=== PATIENT | female | born 1995 | race Caucasian/White ===

== ENCOUNTER → 2023-09-08 08:19 | Outpatient (REF) | payer OTHER, SELFPAY | LOC: WDC 08:19 | PROVIDERS: ATTENDING PHYSICIAN Nurse Practitioner Family; FAMILY PHYSICIAN Registered Nurse | DX: N64.4 Mastodynia (principal) | CPT/HCPCS: 76642 ==

== ENCOUNTER → 2023-10-04 14:01 | Outpatient (REF) | payer OTHER, SELFPAY | LOC: HWRAD 14:01 | PROVIDERS: ATTENDING PHYSICIAN Nurse Practitioner Family; FAMILY PHYSICIAN Registered Nurse | DX: N92.6 Irregular menstruation, unspecified (principal) | CPT/HCPCS: 76830; 76856 ==

== ENCOUNTER → 2024-02-17 11:59 | Outpatient (REF) | payer OTHER, SELFPAY | LOC: PNTC 11:59 | PROVIDERS: ATTENDING PHYSICIAN Obstetrics & Gynecology | DX: O36.8990 Maternal care for other specified fetal problems, unspecified trimester, not applicable or unspecified (principal); V89.2XXA Person injured in unspecified motor-vehicle accident, traffic, initial encounter | CPT/HCPCS: 76801 ==

== ENCOUNTER → 2024-03-22 08:26 | Outpatient (REF) | payer OTHER, SELFPAY | LOC: WDC 08:26 | PROVIDERS: ATTENDING PHYSICIAN Nurse Practitioner Family | DX: R92.8 Other abnormal and inconclusive findings on diagnostic imaging of breast (principal); N63.23 Unspecified lump in the left breast, lower outer quadrant | CPT/HCPCS: 76642 ==

== ENCOUNTER 2024-07-19 21:13 | Observation (INO) | payer OTHER, SELFPAY ==
[2024-07-19 21:39] VITALS: BP 104/65; BMI 25.5
[2024-07-19] MEDS: LR 1000 IV (22:45)
[2024-07-19 22:52] LABS: Urine Albumin Negative (Neg - Trace); Urine Bilirubin Negative (Negative); Urine Character Clear (Clear); Urine Color Yellow; Urine Glucose Negative (Negative); Urine Ketone Negative (Negative); Urine Leukocyte Negative (Negative); Urine Nitrite Negative (Negative); Urine Occult Blood Negative (Negative); Urine Urobilinogen Negative (Neg - 1+); Urine pH 6.5 (5.0-9.0)
[2024-07-19 22:53] LABS: % Basophils 0.3 % (0-2); % Immature Granulocytes 1.1 % (0-0.5); % Lymphocytes 21.9 % (20.5-51.1); % Monocytes 8.8 % (1.7-9.3); % Neutrophils 66.9 % (42.2-75.2); Absolute Eosinophils 0.1 10^3/uL (0-0.7); Absolute Immature Granulocytes 0.1 10^3/uL (0-0.05); Absolute Lymphocytes 2.2 10^3/uL (1.2-3.4); Absolute Monocytes 0.9 10^3/uL (0.1-0.6); Absolute Neutrophils 6.7 10^3/uL (1.4-6.5); Hematocrit 30.9 % (37.0-47.0); Hemoglobin 10.6 g/dL (12.0-16.0); Mean Corp Hgb Conc. 34.3 g/dL (33.0-37.0); Mean Corpuscular Hgb 28.7 pg (27.0-31.0); Mean Corpuscular Volume 83.7 fL (81.0-99.0); Mean Platelet Volume 9.3 fL (7.4-10.4); Nucleated Red Blood Cells % 0 %; Platelet Count 250 10^3/uL (130-400); Red Blood Cell Count 3.69 10^6/uL (4.20-5.40); Red Cell Dist. Width 12.7 % (11.5-14.5)
== END 2024-07-20 08:10 | disposition home or self-care (01) ==
LOC: LDRP 21:13
PROVIDERS: ADMITTING PHYSICIAN Obstetrics & Gynecology; FAMILY PHYSICIAN Registered Nurse
DX: O26.893 Other specified pregnancy related conditions, third trimester (principal); W10.9XXA Fall (on) (from) unspecified stairs and steps, initial encounter; Y93.01 Activity, walking, marching and hiking; Y92.9 Unspecified place or not applicable; Z3A.32 32 weeks gestation of pregnancy; Z28.310 Unvaccinated for COVID-19
CPT/HCPCS: 76815; 81003; 85025; 85460; 86850; 86900; 86901; G0378

== ENCOUNTER 2024-08-21 03:12 | Observation (INO) | payer OTHER, SELFPAY ==
[2024-08-21 03:39] VITALS: BMI 26.8
[2024-08-21 03:40] VITALS: BP 108/70
[2024-08-21] MEDS: LR 1000 IV ×2 (04:10→08:15)
[2024-08-21 04:32] LABS: Urine Albumin Negative (Neg - Trace); Urine Bilirubin Negative (Negative); Urine Character Clear (Clear); Urine Color Yellow; Urine Glucose Negative (Negative); Urine Ketone Negative (Negative); Urine Leukocyte 1+ (Negative); Urine Nitrite Negative (Negative); Urine Occult Blood Negative (Negative); Urine Specific Gravity 1.015 (<1.030); Urine Urobilinogen Negative (Neg - 1+)
[2024-08-21 04:34] LABS: % Basophils 0.4 % (0-2); % Eosinophils 0.8 % (0-6); % Immature Granulocytes 0.9 % (0-0.5); % Lymphocytes 15.8 % (20.5-51.1); % Monocytes 8.6 % (1.7-9.3); % Neutrophils 73.5 % (42.2-75.2); Absolute Basophils 0.1 10^3/uL (0-0.2); Absolute Eosinophils 0.1 10^3/uL (0-0.7); Absolute Immature Granulocytes 0.1 10^3/uL (0-0.05); Absolute Lymphocytes 2.2 10^3/uL (1.2-3.4); Absolute Monocytes 1.2 10^3/uL (0.1-0.6); Absolute Neutrophils 10.2 10^3/uL (1.4-6.5); Hematocrit 31.5 % (37.0-47.0); Hemoglobin 10.3 g/dL (12.0-16.0); Mean Corp Hgb Conc. 32.7 g/dL (33.0-37.0); Mean Corpuscular Hgb 26.4 pg (27.0-31.0); Mean Corpuscular Volume 80.8 fL (81.0-99.0); Mean Platelet Volume 10.1 fL (7.4-10.4); Nucleated Red Blood Cells % 0 %; Platelet Count 254 10^3/uL (130-400); White Blood Cell Count 13.9 10^3/uL (4.8-10.8)
[2024-08-21 04:55] LABS: ALT (SGPT) 14 U/L (0-35); AST (SGOT) 20 U/L (14-36); Albumin 3.6 g/dl (3.5-5.0); Alkaline Phosphatase 153 U/L (38-126); Blood Urea Nitrogen 4 mg/dl (7-17); Calcium 8.8 mg/dl (8.4-10.2); Carbon Dioxide 21 mmol/L (22-30); Chloride 106 mmol/L (98-107); Estimated Creatinine Clearance > 125 ml/min; Glucose 110 mg/dl (70-99); Sodium 138 mmol/L (135-145); Total Protein 6.1 g/dl (6.3-8.2); eGFR > 60.00
[2024-08-21 04:57] LABS: Protein/creatinine Ratio 0.2; Urine Protein 12 mg/dl
[2024-08-21 05:25] LABS: Urine Bacteria Many (Negative); Urine Squamous Cell >30 /LPF (Few)
[2024-08-21] MEDS: AMOXIL 500 MG PO (07:07)
[2024-08-21] MEDS: ZOFRAN ODT (ORALLY DISINTEGRATING) 4 MG PO (07:56)
[2024-08-21] MEDS: MORPHINE SULFATE 2 MG IV (08:45)
[2024-08-21] MEDS: TYLENOL 1000 MG PO (12:05)
[2024-08-21] MEDS: ANCEF 10 IV (12:06)
== END 2024-08-21 15:39 | disposition home or self-care (01) ==
LOC: LDRP 03:12
PROVIDERS: Obstetrics & Gynecology; ADMITTING PHYSICIAN Obstetrics & Gynecology
DX: O23.43 Unspecified infection of urinary tract in pregnancy, third trimester (principal); N13.6 Pyonephrosis; R10.9 Unspecified abdominal pain; O26.893 Other specified pregnancy related conditions, third trimester; L29.9 Pruritus, unspecified; Z3A.36 36 weeks gestation of pregnancy; Z88.8 Allergy status to other drugs, medicaments and biological substances; Z91.048 Other nonmedicinal substance allergy status; Z28.310 Unvaccinated for COVID-19
CPT/HCPCS: 76770; 80053; 81003; 81015; 82570; 84156; 85025; 86850; 86900; 86901; 87086; G0378

== ENCOUNTER 2024-09-06 19:26 | Inpatient (IN) | payer OTHER, SELFPAY ==
[2024-09-06 19:30] VITALS: BMI 26.8
[2024-09-06 20:08] LABS: % Basophils 0.4 % (0-2); % Eosinophils 1.1 % (0-6); % Immature Granulocytes 1.3 % (0-0.5); % Lymphocytes 21.8 % (20.5-51.1); % Monocytes 9.5 % (1.7-9.3); % Neutrophils 65.9 % (42.2-75.2); Absolute Basophils 0.1 10^3/uL (0-0.2); Absolute Eosinophils 0.1 10^3/uL (0-0.7); Absolute Immature Granulocytes 0.2 10^3/uL (0-0.05); Absolute Lymphocytes 2.6 10^3/uL (1.2-3.4); Absolute Monocytes 1.1 10^3/uL (0.1-0.6); Absolute Neutrophils 7.9 10^3/uL (1.4-6.5); Hemoglobin 10.1 g/dL (12.0-16.0); Mean Corp Hgb Conc. 32.6 g/dL (33.0-37.0); Mean Corpuscular Hgb 25.5 pg (27.0-31.0); Mean Corpuscular Volume 78.3 fL (81.0-99.0); Mean Platelet Volume 9.6 fL (7.4-10.4); Nucleated Red Blood Cells % 0 %; Platelet Count 333 10^3/uL (130-400); Red Blood Cell Count 3.96 10^6/uL (4.20-5.40); Red Cell Dist. Width 14.8 % (11.5-14.5)
[2024-09-06] MEDS: LR 1000 IV (20:43)
[2024-09-06] MEDS: FLUSH (NSS) 1 FLUSH IV (20:43)
[2024-09-06] MEDS: CYTOTEC 25 MICROGRAM VAG (21:02)
[2024-09-07 06:21] VITALS: BP 105/67
[2024-09-07] MEDS: PITOCIN 30 UNITS/NSS 500 ML IV (09:01)
[2024-09-07] MEDS: LR 1000 IV (13:14)
[2024-09-07] MEDS: FENTANYL/BUPIVACAINE 100 EPIDURAL (19:44)
[2024-09-07] MEDS: SUBLIMAZE 100 MCG EPIDURAL (19:44)
[2024-09-08] MEDS: FENTANYL/BUPIVACAINE 100 EPIDURAL (04:30)
[2024-09-08] MEDS: TYLENOL 650 MG PO ×3 (10:48→23:58)
[2024-09-08] MEDS: PRENATAL PLUS 1 TABLET PO (10:48)
[2024-09-08] MEDS: MOTRIN 600 MG PO ×2 (15:54→21:56)
[2024-09-09] MEDS: TYLENOL 650 MG PO ×4 (03:58→23:56)
[2024-09-09] MEDS: MOTRIN 600 MG PO ×3 (03:58→19:34)
[2024-09-09 04:23] LABS: Hematocrit 26.9 % (37.0-47.0); Hemoglobin 8.6 g/dL (12.0-16.0)
[2024-09-09] MEDS: PRENATAL PLUS 1 TABLET PO (08:35)
[2024-09-09] MEDS: FEOSOL 325 MG PO (08:35)
[2024-09-09] MEDS: SENOKOT-S 1 TABLET PO (08:35)
[2024-09-10] MEDS: MOTRIN 600 MG PO (06:00)
[2024-09-10] MEDS: SENOKOT-S 1 TABLET PO (08:44)
[2024-09-10] MEDS: PRENATAL PLUS 1 TABLET PO (08:44)
[2024-09-10] MEDS: FEOSOL 325 MG PO (08:44)
[2024-09-12 14:14] LABS: Syphilis/T. pallidum Ab Reflex Negative (Negative)
== END 2024-09-10 13:58 | disposition home or self-care (01) | DRG 807 ==
LOC: LDRP 19:26
PROVIDERS: Student in an Organized Health Care Education/Training Program; ADMITTING PHYSICIAN Obstetrics & Gynecology; FAMILY PHYSICIAN Obstetrics & Gynecology
PROC: 3E0P7VZ Introduction of Hormone into Female Reproductive, Via Natural or Artificial Opening (ICD-10-PCS; 2024-09-06)
PROC: 3E033VJ Introduction of Other Hormone into Peripheral Vein, Percutaneous Approach (ICD-10-PCS; 2024-09-07)
PROC: 10E0XZZ Delivery of Products of Conception, External Approach (ICD-10-PCS; 2024-09-08)
PROC: 0KQM0ZZ Repair Perineum Muscle, Open Approach (ICD-10-PCS; 2024-09-08)
PROC: 10907ZC Drainage of Amniotic Fluid, Therapeutic from Products of Conception, Via Natural or Artificial Opening (ICD-10-PCS; 2024-09-08)
PROC: 3E0234Z Introduction of Serum, Toxoid and Vaccine into Muscle, Percutaneous Approach (ICD-10-PCS; 2024-09-10)
DX: O32.6XX0 Maternal care for compound presentation, not applicable or unspecified (principal); Z37.0 Single live birth; O76 Abnormality in fetal heart rate and rhythm complicating labor and delivery; O69.81X0 Labor and delivery complicated by cord around neck, without compression, not applicable or unspecified; O70.1 Second degree perineal laceration during delivery; Z3A.39 39 weeks gestation of pregnancy; Z23 Encounter for immunization
CPT/HCPCS: 85014; 85018; 85025; 86780; 86850; 86900; 86901

== ENCOUNTER 2024-09-14 02:36 | Observation (INO) | payer OTHER, SELFPAY ==
[2024-09-14 02:43] VITALS: BP 141/84; BMI 24.8
[2024-09-14 03:04] LABS: Urine Albumin 1+ (Neg - Trace); Urine Bilirubin Negative (Negative); Urine Character Clear (Clear); Urine Glucose Negative (Negative); Urine Ketone Negative (Negative); Urine Leukocyte 3+ (Negative); Urine Nitrite Negative (Negative); Urine Occult Blood 4+ (Negative); Urine Specific Gravity 1.005 (<1.030); Urine Urobilinogen Negative (Neg - 1+)
[2024-09-14 03:05] LABS: % Basophils 0.8 % (0-2); % Eosinophils 2.9 % (0-6); % Lymphocytes 27.1 % (20.5-51.1); % Monocytes 9.1 % (1.7-9.3); % Neutrophils 59.1 % (42.2-75.2); Absolute Basophils 0.1 10^3/uL (0-0.2); Absolute Eosinophils 0.3 10^3/uL (0-0.7); Absolute Immature Granulocytes 0.1 10^3/uL (0-0.05); Absolute Lymphocytes 2.9 10^3/uL (1.2-3.4); Absolute Neutrophils 6.2 10^3/uL (1.4-6.5); Hematocrit 34.5 % (37.0-47.0); Hemoglobin 11.2 g/dL (12.0-16.0); Mean Corp Hgb Conc. 32.5 g/dL (33.0-37.0); Mean Corpuscular Hgb 25.4 pg (27.0-31.0); Mean Corpuscular Volume 78.2 fL (81.0-99.0); Mean Platelet Volume 9.3 fL (7.4-10.4); Nucleated Red Blood Cells % 0 %; Platelet Count 295 10^3/uL (130-400); Red Blood Cell Count 4.41 10^6/uL (4.20-5.40); Red Cell Dist. Width 15.8 % (11.5-14.5); Urine Color Straw; White Blood Cell Count 10.5 10^3/uL (4.8-10.8)
[2024-09-14 03:17] LABS: Protein/creatinine Ratio 2.9; Urine Protein 24 mg/dl
[2024-09-14 03:18] LABS: ALT (SGPT) 21 U/L (0-35); AST (SGOT) 21 U/L (14-36); Albumin 3.8 g/dl (3.5-5.0); Alkaline Phosphatase 141 U/L (38-126); Blood Urea Nitrogen 9 mg/dl (7-17); Calcium 9.8 mg/dl (8.4-10.2); Carbon Dioxide 25 mmol/L (22-30); Chloride 110 mmol/L (98-107); Estimated Creatinine Clearance 117 ml/min; Glucose 83 mg/dl (70-99); Potassium 4.4 mmol/L (3.5-5.1); Sodium 142 mmol/L (135-145); Total Bilirubin 0.7 mg/dl (0.2-1.3); Total Protein 6.4 g/dl (6.3-8.2); Uric Acid 4.2 mg/dl (2.5-6.2); eGFR > 60.00
[2024-09-14 03:20] LABS: Urine Squamous Cell 16-20 /LPF (Few)
[2024-09-14 03:21] LABS: Urine Red Blood Cell 0-2 /HPF (0-2)
[2024-09-14] MEDS: LR 1000 IV (04:13)
[2024-09-14] MEDS: MAGNESIUM SULFATE 100 IV (04:14)
[2024-09-14] MEDS: MAGNESIUM SULFATE 40 GRAM 1000 IV (04:40)
[2024-09-14] MEDS: MOTRIN 600 MG PO ×2 (08:18→20:56)
[2024-09-14] MEDS: PRENATAL PLUS 1 TABLET PO (08:18)
[2024-09-15] MEDS: MAGNESIUM SULFATE 40 GRAM 1000 IV (00:39)
[2024-09-15] MEDS: LR IV (11:39)
[2024-09-15] MEDS: PRENATAL PLUS PO (11:40)
== END 2024-09-15 12:36 | disposition home or self-care (01) ==
LOC: LDRP 02:36
PROVIDERS: ADMITTING PHYSICIAN Obstetrics & Gynecology
DX: O14.15 Severe pre-eclampsia, complicating the puerperium (principal); R51.9 Headache, unspecified; Z88.8 Allergy status to other drugs, medicaments and biological substances; Z91.048 Other nonmedicinal substance allergy status; Z28.310 Unvaccinated for COVID-19
CPT/HCPCS: 80053; 81003; 81015; 82570; 84156; 84550; 85025; 86850; 86900; 86901

== ENCOUNTER → 2025-03-16 14:25 | Outpatient (REF) | payer BC, SELFPAY | LOC: WDC 14:25 | PROVIDERS: ATTENDING PHYSICIAN Student in an Organized Health Care Education/Training Program; FAMILY PHYSICIAN Registered Nurse | DX: R92.8 Other abnormal and inconclusive findings on diagnostic imaging of breast (principal) | CPT/HCPCS: 76642 ==